=== PATIENT | male | born 1935 | race Hispanic/Latino ===

== ENCOUNTER 2018-06-01 12:56 | Outpatient (CLI) | payer MEDICARE, OTHER ==
--- NOTE | 2018-06-01 14:17 | XRay Report ---
XRAY LUMBAR SPINE WITH OBLIQUES 5 VIEWS: 06/01/18 12:56:00 CLINICAL: Right sciatica. FINDINGS: Mild dextroscoliosis at L2-3. L5-S1 disc space narrowing with anterior osteophytes. The rest of the disc spaces are intact. Large anterior osteophytes at L1-2 and lateral osteophytes at L1-2 and L2-3. The pedicles are intact. No fracture. Moderate right neural foraminal stenosis at L3-4 and L2-3. No significant left-sided neural foraminal stenosis. Mild to moderate lower lumbar facet joint sclerosis. IMPRESSION: Mild scoliosis and multilevel degenerative change. Moderate right-sided neural foraminal stenosis at L2-3 and L3-4.
--- NOTE | 2018-06-01 14:18 | XRay Report ---
XRAY RIGHT HIP TWO VIEWS: 06/01/18 12:56:00 CLINICAL: Right sciatica. FINDINGS: No fracture or dislocation.Mild osteoarthritis with superior acetabular eburnation and a small superolateral osteophytes. Mild central joint space narrowing. The right SI joint is normal. Normal soft tissues. IMPRESSION: Mild osteoarthritis of the right hip.
== END 2018-06-01 12:57 | disposition home or self-care (01) ==
LOC: SPVIMAG 12:56
PROVIDERS: ATTEND Internal Medicine
DX: M41.86 Other forms of scoliosis, lumbar region (principal); M47.896 Other spondylosis, lumbar region; M48.061 Spinal stenosis, lumbar region without neurogenic claudication; M16.11 Unilateral primary osteoarthritis, right hip
CPT/HCPCS: 72110